=== PATIENT | male | born 1955 | race Caucasian/White ===

== ENCOUNTER 2016-09-07 18:42 | Inpatient (IN) | payer MEDICARE ==
[~2016-09-07] VITALS: Ht 193 cm; Wt 172.5 kg
[~2016-09-07 18:42] MED LIST: CEPHALEXIN500 M1 PO; COZAAR50 MG PO; HUMALOG 75/2100 U/ML SQ; HYDROMORPHONE HY8 MG PO; [UNRECOGNIZED DRUG - REMARK] PO
[2016-09-11] MEDS ORDERED: PROAIR HFA0.09 MG/AC IH (16:06)
[2016-09-11] MEDS ORDERED: ATORVASTATIN CA10 MG PO (16:06)
[2016-09-11] MEDS ORDERED: CARDIZEM CD 24240 MG PO (16:07)
[2016-09-11] MEDS ORDERED: SYMBICORT1 AE3 IH (16:07)
[2016-09-11] MEDS ORDERED: ESCITALOPRAM10 MG PO (16:08)
[2016-09-11] MEDS ORDERED: ENALAPRIL20 MG PO (16:08)
[2016-09-11] MEDS ORDERED: NEURONTIN300 MG/CAP PO (16:09)
[2016-09-11] MEDS ORDERED: LASIX 80MG TABL80 MG PO (16:09)
[2016-09-11] MEDS ORDERED: HYDROCHLOROTH12.5 M2 PO (16:10)
[2016-09-11] MEDS ORDERED: LEVEMIR FLEX100 U/ML SQ (16:11)
[2016-09-11] MEDS ORDERED: NOVOLOG FLEX100 U/ML SQ (16:11)
[2016-09-11] MEDS ORDERED: TRENTAL 400MG400 MG PO (16:12)
[2016-09-11] MEDS ORDERED: POTASSIUM CHLO20 ME4 PO (16:13)
[2016-09-11] MEDS ORDERED: TRAMADOL 50 MG TAB PO (16:14)
[2016-09-11 17:35] VITALS: BP 169/72
[2016-09-11 17:36] VITALS: BP 169/72
[2016-09-12 06:24] VITALS: BP 128/92
[2016-09-12 18:42] VITALS: BP 132/62
[2016-09-13 06:27] VITALS: BP 111/57
[2016-09-13 18:09] VITALS: BP 130/79
[2016-09-14 06:35] VITALS: BP 108/66
[2016-09-14 17:59] VITALS: BP 129/91
[2016-09-15 06:22] VITALS: BP 132/66
[2016-09-15 18:13] VITALS: BP 148/79
[2016-09-16 06:21] VITALS: BP 123/64
[2016-09-16 18:49] VITALS: BP 156/80
[2016-09-17 06:21] VITALS: BP 105/41
[2016-09-17 18:09] VITALS: BP 136/71
[2016-09-18 06:28] VITALS: BP 121/64
[2016-09-18 18:22] VITALS: BP 130/74
[2016-09-19 06:33] VITALS: BP 113/62
[2016-09-19 18:32] VITALS: BP 168/70
[2016-09-20 06:25] VITALS: BP 97/55
[2016-09-20 18:07] VITALS: BP 143/79
[2016-09-21 06:22] VITALS: BP 104/54
[2016-09-21 18:12] VITALS: BP 148/82
[2016-09-22 06:24] VITALS: BP 118/66
[2016-09-22 18:13] VITALS: BP 160/86
[2016-09-23 06:23] VITALS: BP 108/67
[2016-09-23 18:20] VITALS: BP 157/80
[2016-09-24 06:30] VITALS: BP 148/72
[2016-09-24 18:02] VITALS: BP 156/90
[2016-09-25 06:27] VITALS: BP 152/80
[2016-09-25 18:17] VITALS: BP 151/92
[2016-09-26 06:27] VITALS: BP 123/63
[2016-09-26 18:24] VITALS: BP 148/94
[2016-09-27 06:34] VITALS: BP 112/66
[2016-09-27 18:09] VITALS: BP 145/71
[2016-09-28 06:23] VITALS: BP 118/65
[2016-09-28] MEDS ORDERED: ASPIR LOW81 MG PO (15:29)
[2016-09-28 18:35] VITALS: BP 155/78
[2016-09-29 06:17] VITALS: BP 127/72
[2016-09-29] MEDS ORDERED: CEPHALEXIN500 M1 PO (07:49)
[2016-09-29] MEDS ORDERED: VASOTEC20 M1 PO (07:52)
[2016-09-29] MEDS ORDERED: TRAMADOL 50 MG TAB PO (07:53)
[2016-09-29] MEDS ORDERED: HUMULIN 70/30 KW3 ML SQ ×2 (07:56)
[2016-09-29] MEDS ORDERED: THERA TABLET400 MCG PO (07:57)
== END 2016-09-29 13:15 | disposition home health service (06) | DRG 603 ==
LOC: PACU 18:42 → MED/SURG 09-11 17:07
PROVIDERS: ADMIT Family Medicine
DX: L03.116 Cellulitis of left lower limb (principal); Z68.42 Body mass index [BMI] 45.0-49.9, adult; E66.01 Morbid (severe) obesity due to excess calories; E11.9 Type 2 diabetes mellitus without complications; R53.81 Other malaise; I87.8 Other specified disorders of veins; G47.33 Obstructive sleep apnea (adult) (pediatric); Z87.891 Personal history of nicotine dependence; Z89.511 Acquired absence of right leg below knee; Z79.84 Long term (current) use of oral hypoglycemic drugs
CPT/HCPCS: A4500; J1650; J1815

== ENCOUNTER 2016-09-30 11:20 | Emergency (ER) | payer MEDICARE ==
[~2016-09-30] VITALS: Ht 193 cm; Wt 172.5 kg
[~2016-09-30 11:20] MED LIST changes: +ASPIR LOW81 MG PO; +ATORVASTATIN CA10 MG PO; +CARDIZEM CD 24240 MG PO; +ENALAPRIL20 MG PO; +ESCITALOPRAM10 MG PO; +HUMULIN 70/30 KW3 ML SQ; +HYDROCHLOROTH12.5 M2 PO; +LASIX 80MG TABL80 MG PO; +LEVEMIR FLEX100 U/ML SQ; +NEURONTIN300 MG/CAP PO; +NOVOLOG FLEX100 U/ML SQ; +POTASSIUM CHLO20 ME4 PO; +PROAIR HFA0.09 MG/AC IH; +SYMBICORT1 AE3 IH; +THERA TABLET400 MCG PO; +TRAMADOL 50 MG TAB PO; +TRENTAL 400MG400 MG PO; +VASOTEC20 M1 PO
[2016-09-30 16:36] VITALS: BP 169/87
--- NOTE | 2016-09-30 17:00 | NUR ---
Pt states that it is more work than he anticipated to take care of himself independently at home and he believes that he just needs a LTC admission at [facility]. Discussed w/ Sharlene SW and ADM and ER provider pt's situation and it is determined that pt would benefit from a continued SN stay at [facility] which is expected to be greater than 30 days with the possibility of LTC placement. Pt states that he will request that [facility] assist him w/ exercise, carb counting and diet control so that he can lose enough weight that he can get around better before he tries to return to his home. [facility] is notified that pt is admitted to [facility] and to contact the there for recommended sleep study appointment. Orders and pt clinical records are faxed to [facility]. Pt calls for son-in-law w/ pickup to take him to [facility]. Pt performed pivot transfer w/o difficulty into pickup at discharge w/ SBA of nursing staff.
== END 2016-09-30 16:40 ==
LOC: ED 11:20
DX: R53.81 Other malaise (principal); R53.1 Weakness; I10 Essential (primary) hypertension; E11.8 Type 2 diabetes mellitus with unspecified complications; L03.116 Cellulitis of left lower limb; E66.01 Morbid (severe) obesity due to excess calories; Z89.611 Acquired absence of right leg above knee; Z79.4 Long term (current) use of insulin; Z68.42 Body mass index [BMI] 45.0-49.9, adult; S60.212A Contusion of left wrist, initial encounter; W19.XXXA Unspecified fall, initial encounter; Z91.81 History of falling; R19.7 Diarrhea, unspecified; G47.33 Obstructive sleep apnea (adult) (pediatric)